=== PATIENT | female | born 1990 | race Caucasian/White ===

== ENCOUNTER 2016-10-20 18:29 | Inpatient (IN) | payer BC, OTHER ==
[~2016-10-20] VITALS: Ht 160 cm; Wt 53.5 kg
[2016-10-20] MEDS ORDERED: MIRALAX 17 GM POWD.PACK PO PRN (19:15)
[2016-10-20] MEDS ORDERED: MAG HYDROX/AL HYDROX/SIMETH 30 ML LIQUID UDC PO PRN (19:15)
[2016-10-20] MEDS ORDERED: ONDANSETRON ODT 4 MG TAB.RAPDIS SL PRN (19:15)
[2016-10-20] MEDS ORDERED: PROMETHAZINE HCL 25 MG/1 ML VIAL IM PRN (19:15)
[2016-10-20] MEDS ORDERED: ACETAMINOPHEN 325 MG TABLET PO PRN (19:15)
[2016-10-20] MEDS ORDERED: CLONIDINE HCL 0.1 MG TABLET PO PRN (19:15)
[2016-10-20] MEDS ORDERED: DICYCLOMINE HCL 20 MG TABLET PO PRN (19:15)
[2016-10-20] MEDS ORDERED: LOPERAMIDE HCL 2 MG CAPSULE PO PRN ×2 (19:15)
[2016-10-20] MEDS ORDERED: KETOROLAC TROMETHAMINE 30 MG INJ IM PRN (19:15)
[2016-10-20] MEDS ORDERED: MAGNESIUM HYDROXIDE 30 ML LIQUID UDC PO PRN (19:15)
[2016-10-20] MEDS ORDERED: BUPRENORPHINE HCL 2 MG TAB.SUBL SL PRN (19:15)
--- NOTE | 2016-10-20 20:30 | NUR ---
ADMISSION NOTE BP: 120/79 HR: 100 RR:20 T:98.3 SpO2:98% Pain: generalized body aches 01/03 Ht: 5'3" Wt: 118 lbs COWS:6, CIWA:6 Pt arrived ambulatory from [facility] Intake to the third floor accompanied by a BHT at 1913. Pt is a 26 year old female who was admitted on 10/20/16 for Heroin dependency. Pt is full code with NKA. She reports a PMHXx of anxiety, depression, chlamydia and herpes II . She denies any recent tremors, falls or seizures. She denies having a PCP. She reports taking home medication of: 1. Clonidine 0.2 mg QID Last dose: 10/19/16. She reports she was at [facility] in July for 45 days. She reports her last sobriety was 60 days, 2 months ago. She verbalizes that she is here for Heroin. She describes her current use as: 1. Heroin IV/inhalation 1 gram daily for 2 months Last dose: " barely 1 gram" this morning (10/20/16) She describes her withdrawal symptoms as: " cold sweats, shakes, restlessness, anxiety and nausea" Upon assessment, pt is alert and oriented x4, anxious, tearful and cooperative. Speech is clear and audible. Heart rate regular. She denies chest pain or SOB. PERRLA, breathing is even and unlabored. Lung sounds clear. Abdomen is soft and non distended, bowel sounds present, last BM (10/20/16). Pt reports that BM is regular. Pt's skin is warm, dry and intact. MD aware of pt's admission. Pt refused all vaccines and lab draw. Risks/benefits explained x3. Pt still refused. She was oriented to room and unit. Pt safe with bed locked in lowest position, side rails up x2 and call light within reach. Will continue to monitor.
[2016-10-20 20:45] LABS: *URINE HCG, QUAL NEGATIVE (NEGATIVE)
[2016-10-20 20:59] LABS: *AMPHETAMINE, URINE NEGATIVE (NEGATIVE); *BARBITURATE, URINE NEGATIVE (NEGATIVE); *CANNABINOID, URINE NEGATIVE (NEGATIVE); *COCCAINE, URINE NEGATIVE (NEGATIVE); *OPIATE, URINE POSITIVE (NEGATIVE); *PHENCYCLIDINE SCREEN,URINE NEGATIVE (NEGATIVE)
[2016-10-20] MEDS ORDERED: LORAZEPAM 1 MG TABLET PO ONE (21:00)
[2016-10-20] MEDS ORDERED: BUPRENORPHINE HCL 2 MG TAB.SUBL SL ONE (21:00)
[2016-10-20] MEDS: GABAPENTIN 300 MG CAPSULE PO SCH (21:13)
[2016-10-20] MEDS ORDERED: CLONIDINE HCL 0.2 MG TABLET PO PRN (22:15)
[2016-10-20] MEDS: METHOCARBAMOL 750 MG TABLET PO PRN (23:08)
--- NOTE | 2016-10-20 23:09 | NUR ---
ONE TIME CLONIDINE/ PRN ROBAXIN Pr reports body aches, PRN Robaxin administered as ordered. Pt reports taking home medication of Clonidine 0.2 mg for anxiety/sleep. MD made aware. Pt received one time order of Clonidine 0.2 mg. Breathing even and unlabored, safety measures in place. Will monitor effectiveness of medication.
[2016-10-21] VITALS: BP 108/75
--- NOTE | 2016-10-21 00:09 | NUR ---
REASSESSMENT Medications effective. Pt reports decreased anxiety and decreased body aches 11/03. Breathing even and unlabored, safety measures in place. Will continue to monitor.
[2016-10-21] MEDS ORDERED: LORAZEPAM 1 MG TABLET PO ONE ×2 (01:00→14:45)
[2016-10-21] MEDS ORDERED: CLON0.2T PO (02:38)
--- NOTE | 2016-10-21 04:00 | NUR ---
VITALS 0400 vitals refused. Breathing is even and unlabored, respirations 16. Pt safe with bed locked in lowest position, side rails up x2 and call light within reach. Will continue to monitor. Addendum: 10/21/16 at 0517 by RODRIGO RHODES RN Amended: Links added.
[2016-10-21 05:20] VITALS: BP 101/66
[2016-10-21] MEDS ORDERED: LORAZEPAM 1 MG TABLET ONE (05:44)
--- NOTE | 2016-10-21 05:44 | NUR ---
ONE TIME ATIVAN/PRN SUBUTEX Pt noted with increased anxiety and agitation. Pt complains of body aches 10/10, nausea with no episode of vomiting, and cold sweats. COWS:13, CIWA:9. One time Ativan and PRN Subutex administered as ordered. Breathing even and unlabored. Safety measures in place. Will continue to monitor effectiveness.
--- NOTE | 2016-10-21 06:44 | NUR ---
ONE TIME ATIVAN/PRN SUBUTEX REASSESSMENT Medications effective. Pt reports body aches decreased to 6/10 and pt feels less anxious/agitated and nausea somewhat improved. COWS:9, CIWA: 6. Breathing is even and unlabored, safety measures in place. Will continue to monitor.
--- NOTE | 2016-10-21 07:03 | NUR ---
END OF SHIFT Pt is a 26 year old female admitted on 10/20/16 for Heroin dependency. Pt is full code with NKA. She reports a PMHx of anxiety, depression and genital herpes. She is scheduled to start 5 day Subutex taper today 10/21/16. She received PRN Robaxin, one time clonidine 0.2 mg, PRN Subutex and one time Ativan. She slept a total of 5 hrs, Intake: 592 mL, Void : x1, BM: 0. COWS: 9, CIWA:6. She remains alert and oriented x4, breathing is even and unlabored, safety measures in place. Endorsed to oncoming nurse.
--- NOTE | 2016-10-21 07:04 | NUR ---
Start of Shift Notes: Received patient in his room. Alert and oriented x 4. Verbally responsive. Able to make needs known. Respirations even and unlabored. No SOB noted. Skin warm and dry to touch. Abdomen soft and non-distended with (+) BS in all 4 quadrants. No complains of N/V/D or constipation noted. No complains of dysuria. Ambulatory ad price with steady gait. Patient is a 26 year old female admitted for opiate dependence who was placed on a 5-day Ativan taper that will be started today. Received PRN Ativan and Subutex as ordered. No adverse reactions noted. Has past medical hx anxiety, depression, and genital herpes. NKA. FULL CODE. Vegetarian diet. Educated patient on the current plan of care for the day and the medication regimen. Encouraged oral fluid intake and encouraged group participation to learn new skills to prevent relapse. Safety precautions in place. Call light kept in reach. Will continue to monitor closely.
[2016-10-21 07:21] LABS: BASOPHILS # (AUTO) 0.1 K/uL (0.0-0.2); BASOPHILS % (AUTO) 0.7 % (0.0-2.0); EOSINOPHILS % (AUTO) 0.2 % (0.0-7.0); HEMATOCRIT 41.2 % (37.0-47.0); HEMOGLOBIN 13.6 g/dL (12.0-16.0); LYMPHOCYTES # (AUTO) 1.7 K/uL (0.8-4.8); LYMPHOCYTES % (AUTO) 19.8 % (20.5-51.5); MEAN CORPUSCULAR HGB CONC 33 g/dL (32.0-37.0); MEAN CORPUSCULAR VOLUME 90.6 fL (81.0-99.0); MONOCYTES # (AUTO) 0.8 K/uL (0.1-1.30); MONOCYTES % (AUTO) 9.4 % (0.0-11.0); NEUTROPHILS % (AUTO) 69.9 % (38.5-71.5); PLATELET COUNT (AUTO) 275 K/uL (150-450); RED BLOOD CELL COUNT(AUTO) 4.54 MIL/uL (4.20-5.40); RED CELL DISTRIBUTION WIDTH 11.1 % (11.5-14.5); WHITE BLOOD COUNT (AUTO) 8.6 K/uL (4.0-11.2)
[2016-10-21 07:36] LABS: ETHANOL < 3 MG/DL (0-0)
[2016-10-21 07:38] LABS: ALANINE AMINOTRANSFERASE 13 U/L (14-59); ALBUMIN 3.9 g/dL (3.4-5.0); ALKALINE PHOSPHATASE 63 U/L (50-136); ASPARTATE AMINOTRANSFERASE 23 U/L (15-37); BILIRUBIN,TOTAL 0.5 mg/dL (0.2-1.0); CALCIUM 8.6 mg/dL (8.5-10.1); CARBON DIOXIDE 29 mmol/L (21-32); CREATININE 0.9 mg/dL (0.6-1.3); GFR 76 mL/min (>60); GLUCOSE 132 mg/dL (74-106); MAGNESIUM 1.8 mg/dL (1.8-2.4); TOTAL PROTEIN, SERUM 7.2 g/dL (6.4-8.2); UREA NITROGEN, BLOOD 5 mg/dL (7-18)
[2016-10-21 07:52] LABS: THYROID STIMULATING HORMONE 1.064 mIU/mL (0.358-3.740)
[2016-10-21 08:00] VITALS: BP 120/88
[2016-10-21 08:03] LABS: CHLORIDE 102 mmol/L (98-107); SODIUM SERUM 140 mmol/L (136-145)
[2016-10-21] MEDS: BUPRENORPHINE HCL 2 MG TAB.SUBL SL SCH ×4 (08:11→20:52)
[2016-10-21] MEDS: GABAPENTIN 300 MG CAPSULE PO SCH ×3 (08:11→20:49)
[2016-10-21] MEDS: METHOCARBAMOL 750 MG TABLET PO PRN (08:12)
[2016-10-21] MEDS: HYDROXYZINE PAMOATE 25 MG CAPSULE PO PRN (08:12)
--- NOTE | 2016-10-21 08:12 | NUR ---
PRN Clonidine/PRN Robaxin/PRN Vistaril PO given: Patient reports complains of chils, hot flashes, 5/10 muscle aches and pains as well as anxiety related to withdrawal symptoms. Redirected and reassurance was provided with no help. Medicated patient with Vistaril, Clonidine and Robaxin as ordered. Will monitor for effectiveness.
[2016-10-21 08:17] LABS: POTASSIUM 3.3 mmol/L (3.5-5.1)
--- NOTE | 2016-10-21 08:20 | NUR ---
Additional substance use history: Patient revealed that she was also taking Xanax - since 17 years old. She currently uses 12 mg a day either PO or snorted for 2 years. Last use was on 10/20/2016 4 mg. Notified MD Small.
[2016-10-21 08:26] LABS: HIV-1 p24 ANTIGEN NON REACTIVE (NONREACTIVE); HIV-1/2 ANTIBODY NON REACTIVE (NONREACTIVE)
[2016-10-21] MEDS: MULTIVITAMINS,THERAPEUTIC TABLET PO SCH (08:29)
[2016-10-21] MEDS ORDERED: TUBERCULIN,PURIF.PROT.DERIV. 5 TU/0.1 ML TEST ID ONE (09:00)
--- NOTE | 2016-10-21 09:00 | NUR ---
MD Communication: Per MD Small, continue to monitor CIWA scores at this time and notify if CIWA >12. Patient's UDS negative for BZO use.
--- NOTE | 2016-10-21 09:12 | NUR ---
Re-assessment: Per patient, PRN Robaxin, Clonidine and Vistaril were effective in reducing patient's anxiety, chills and muscle aches and pains.
[2016-10-21 12:00] VITALS: BP 106/62
--- NOTE | 2016-10-21 12:59 | NUR ---
Labs: Potassium level 3.3L. Dr. Small aware. Replaced with KCL 20 MEq PO. Patient education provided.
[2016-10-21] MEDS ORDERED: POTASSIUM CHLORIDE 20 MEQ TAB.PRT.SR PO ONE (13:00)
--- NOTE | 2016-10-21 13:30 | NUR ---
Behavior: Patient noted with episodes of inappropriate behavior. Attempts to go inside another patient's room despite explanation of rules and regulation. Patient appears to be unapologetic about her behavior. Also noted to become upset over her lunch tray, seen to yell while at the nurse's station and throwing her meal try at the nurse's desk. Immediately redirected the patient in a calm and professional manner. Appears to med seek and ask for more and more meds despite multiple explanations from staff to redirect her and reassure her. MD Small aware of patient's behavior. For psych eval by Dr. Weathers.
--- NOTE | 2016-10-21 14:54 | NUR ---
Ativan 2 mg PO x 1: New orders received from Dr. Small to receive one time dose of Ativan for CIWA 10 due to anxiety and agitation.
--- NOTE | 2016-10-21 15:54 | NUR ---
Re-assessment: Per patient, Ativan helped in reducing anxiety.
[2016-10-21 16:00] VITALS: BP 109/73
[2016-10-21] MEDS: CLONIDINE HCL 0.1 MG TABLET PO SCH ×2 (16:58→20:50)
--- NOTE | 2016-10-21 18:35 | NUR ---
End of Shift Notes: Patient is a 26 year old female admitted for opiate dependence who was placed on a 5-day Subutex taper that was started today. No adverse reactions noted. Patient is tolerating taper well. Has past medical hx of anxiety, depression, and herpes II. NKA. FULL CODE. Vegetarian diet. Prior to admission, patient was using 1 gram Heroin IV or smoked. Patient's VS monitored q 4 hours. No significant abnormalities noted. Patient's withdrawal symptoms were closely monitored. Initial COWS 13, CIWA 8. Patient presented with anxiety, agitation, chills, hot flashes, muscle aches and pains, and sweats. Medicated patient with Clonidine, Robaxin and Vistaril as ordered at 0812 with help after 1 hour and one time Ativan 1 mg PO at 1454. Last COWS 5, CIWA 7. Per patient, Subutex has been helping her with her withdrawal symptoms. Patient tends to ask for more meds despite redirection and explanations of medication regimen . Safety precautions in place. Call light in reach. Unable to participate in group and therapy sessions. All needs met and attended. Will continue to monitor closely.
[2016-10-21 20:00] VITALS: BP 110/65
--- NOTE | 2016-10-21 20:00 | NUR ---
Start of Shift Pt is a 26 year old female admitted on 10/20/2016 for Heroin, placed on 5 day Subutex taper. Pt reported using Heroin IV/smoke 1 gram for the past 2 months. Pt is allergic to quetiapine, fall precautions, vegetarian diet and full code. PMH: anxiety, depression and herpes II. Upon assessment, pt reports anxiety, is emotional, crying, reports body aches/joint aches. respirations even and unlabored, denies SOB/chest pain, denies n/v/d, bowel sounds active x4, abdomen soft. BP 110/65, pulse 73, respirations 16 , SpO2 96%, temp 98. Will administered scheduled medications. Safety measures in place, call light within reach, side rails up x2, bed locked and in low position. Will continue to monitor.
[2016-10-21] MEDS ORDERED: OLANZAPINE 5 MG TABLET PO SCH (20:30)
[2016-10-21] MEDS ORDERED: OLANZAPINE 5 MG TABLET PO ONE (20:30)
--- NOTE | 2016-10-21 20:48 | NUR ---
ZYPREXA 5MG X1 Pt is emotional, is crying, face flushed/clammy skin. Pt stated, "I AM VERY ANXIOUS!!" Pt is pacing in room, speech rapid. Zyprexa 5mg x1 administered. Safety measures in place, Will continue to monitor.
--- NOTE | 2016-10-21 21:48 | NUR ---
Zyprexa Reassessment Pt is in room, in bed watching TV, no reports of distress, respirations even and unlabored. Safety measures in place, Will continue to monitor.
[2016-10-21] MEDS: diphenhydrAMINE 50 MG CAPSULE PO PRN (22:40)
--- NOTE | 2016-10-21 22:40 | NUR ---
PRN Administration Pt requested aid to help her sleep. Benadryl 50mg PRN administered. Safety measures in place, call light within reach, side rails up x2, bed locked and in low position. Will continue to monitor.
--- NOTE | 2016-10-21 23:45 | NUR ---
PRN Reassessment Pt is sleeping, medication effective, no s/s of distress noted, respirations even and unlabored. Safety measures in place, call light within reach, side rails up x2, bed locked and in low position. Will continue to monitor.
[2016-10-22] VITALS: BP 94/76
--- NOTE | 2016-10-22 | NUR ---
Vital Signs BP 94/76, pulse 76, respirations 16, SpO2 98%, temp 98.1, no pain 0/10 CIWA/COWS deferred d/t pt sleeping, to asses while awake as ordered. Respirations even and unlabored, no s/s of distress noted. Safety measures in place, call light within reach, side rails up x2, bed locked and in low position. Will continue to monitor.
--- NOTE | 2016-10-22 04:00 | NUR ---
Pt refused to be woken up for 0400 VS CIWA/COWS deferred d/t pt sleeping, to asses while awake as ordered. Respirations even and unlabored, no s/s of distress noted. Safety measures in place, call light within reach, side rails up x2, bed locked and in low position. Will continue to monitor.
--- NOTE | 2016-10-22 07:00 | NUR ---
End of Shift Pt is a 26 year old female admitted on 10/20/2016 for Heroin, placed on 5 day Subutex taper. Pt reported using Heroin IV/smoke 1 gram for the past 2 months. Pt is allergic to quetiapine, fall precautions, vegetarian diet and full code. PMH: anxiety, depression and herpes II. Pt presented with anxiety, body joint/aches, - scheduled taper medication administered. During shift, pt was in emotional distress, pt was crying with flushed face, rapid speech, stating, "I AM VERY ANXIOUS!!" Pt Zyprexa 5mg x1 administered. Benadryl 50mg PRN administered for sleep, effective. CIWA 6, COWA 5, VS stable, pt slept for 5 hours, intake of 1500 ml PO and voids x2. Safety measures in place, call light within reach, side rails up x2, bed locked and in low position. Endorsed to day shift nurse.
--- NOTE | 2016-10-22 07:05 | NUR ---
Start of Shift Endorsement received from nightshift nurse. Pt is a 26 y/o female admitted for Heroin dependence. Pt has been placed on a 5 day Subutex taper. Pt received PRN Benadryl and reports sleeping 5 hours. Pt is tolerating the taper well and mildly withdrawing at this time AEB COWS 5, CIWA 6. VS WNL, Full CODE. PT is alert and oriented x4. Pt is in STABLE condition at this time. Remains compliant with medication and diet regimen. All needs have been met, All safety measures in place per hospital policy. Bed in lowest position, side rails up x2, call-light within reach. Will continue to monitor
[2016-10-22 08:00] VITALS: BP 89/58
[2016-10-22] MEDS: MULTIVITAMINS,THERAPEUTIC TABLET PO SCH (10:46)
[2016-10-22] MEDS: GABAPENTIN 300 MG CAPSULE PO SCH ×3 (10:46→20:04)
[2016-10-22] MEDS: CLONIDINE HCL 0.1 MG TABLET PO SCH ×4 (10:46→20:05)
[2016-10-22] MEDS: BUPRENORPHINE HCL 2 MG TAB.SUBL SL SCH ×3 (10:47→20:06)
[2016-10-22] MEDS ORDERED: SULFAMETH/TRIMETH 800/160 MG TABLET PO SCH (11:30)
[2016-10-22 12:00] VITALS: BP 124/73
[2016-10-22] MEDS ORDERED: OLANZAPINE 2.5 MG TABLET PO PRN (14:30)
[2016-10-22 15:09] LABS: HCV AB <0.1 s/co ratio (0.0-0.9); HEPATITIS B CORE AB, IgM Negative (Negative); HEPATITIS B SURFACE AG Negative (Negative)
[2016-10-22 16:00] VITALS: BP 119/78
[2016-10-22] MEDS: IBUPROFEN 600 MG TABLET PO PRN (18:27)
[2016-10-22] MEDS: METHOCARBAMOL 750 MG TABLET PO PRN (18:27)
[2016-10-22] MEDS: HYDROXYZINE PAMOATE 25 MG CAPSULE PO PRN (18:27)
--- NOTE | 2016-10-22 18:59 | NUR ---
End of Shift Endorsement received from nightshift nurse. Pt is a 26 y/o female admitted for Heroin dependence. Pt has been placed on a 5 day Subutex taper. Pt received PRN Motrin, Vistaril and Robaxin for withdrawal symptoms. Pt is tolerating the taper well and mildly withdrawing at this time AEB COWS 3, CIWA 5. Intake: 1755ml, Void x2, BM x0. VS WNL, Full CODE. PT is alert and oriented x4. Pt is in STABLE condition at this time. Remains compliant with medication and diet regimen. All needs have been met, All safety measures in place per hospital policy. Bed in lowest position, side rails up x2, call-light within reach. Will continue to monitor
[2016-10-22 20:00] VITALS: BP 109/65
--- NOTE | 2016-10-22 20:00 | NUR ---
Start of Shift Pt is a 26 year old female admitted on 10/20/2016 for Heroin, placed on 5 day Subutex taper. Pt reported using Heroin IV/smoke 1 gram for the past 2 months. Pt is allergic to quetiapine, fall precautions, vegetarian diet and full code. PMH: anxiety, depression and herpes II. Upon assessment, pt reports anxiety, reports body aches, skin noted with moderate sweat. respirations even and unlabored, denies SOB/chest pain, denies n/v/d, bowel sounds active x4, abdomen soft. BP 109/65, pulse 71, respirations 16 , SpO2 96%, temp 97.9. Will administered scheduled medications. Safety measures in place, call light within reach, side rails up x2, bed locked and in low position. Will continue to monitor.
[2016-10-22] MEDS: diphenhydrAMINE 50 MG CAPSULE PO PRN (22:06)
--- NOTE | 2016-10-22 23:06 | NUR ---
PRN Reassessment Pt is sleeping, medication effective. No s/s of distress noted, respirations even and unlabored. Safety measures in place, call light within reach, side rails up x2, bed locked and in low position. Will continue to monitor.
--- NOTE | 2016-10-23 | NUR ---
Pt refused to be woken up for 0000 VS CIWA/COWS deferred d/t pt sleeping, to asses while awake as ordered. Respirations even and unlabored, no s/s of distress noted. Safety measures in place, call light within reach, side rails up x2, bed locked and in low position. Will continue to monitor.
--- NOTE | 2016-10-23 07:00 | NUR ---
End of Shift Pt is a 26 year old female admitted on 10/20/2016 for Heroin, placed on 5 day Subutex taper. Pt reported using Heroin IV/smoke 1 gram for the past 2 months. Pt is allergic to quetiapine, fall precautions, vegetarian diet and full code. PMH: anxiety, depression and herpes II. During shift, pt presented with anxiety and body aches - scheduled taper medications administered, COWS 3 and CIWA 4, Benadryl 50mg PRN administered. VS stable, pt slept for 7 hours, intake of 1180 ml Po and voids x3. Safety measures in place, call light within reach, side rails up x2, bed locked and in low position. Endorsed to day shift nurse.
--- NOTE | 2016-10-23 07:05 | NUR ---
Start of Shift Endorsement received from nightshift nurse. Pt is a 26 y/o female admitted for Heroin dependence. Pt has been placed on a 5 day Subutex taper. Pt received PRN Benadryl and reports sleeping 7 hours. Pt is tolerating the taper well and mildly withdrawing at this time AEB COWS 3, CIWA 4. VS WNL, Full CODE. Pt reports readiness for discharge. Educated pt on deep breathing techniques to relieve mild anxiety. PT is alert and oriented x4. Pt is in STABLE condition at this time. Remains compliant with medication and diet regimen. All needs have been met, All safety measures in place per hospital policy. Bed in lowest position, side rails up x2, call-light within reach. Will continue to monitor
[2016-10-23 08:00] VITALS: BP 104/68
[2016-10-23] MEDS: MULTIVITAMINS,THERAPEUTIC TABLET PO SCH (08:13)
[2016-10-23] MEDS: CLONIDINE HCL 0.1 MG TABLET PO SCH ×4 (08:13→20:21)
[2016-10-23] MEDS: GABAPENTIN 300 MG CAPSULE PO SCH ×3 (08:13→20:20)
[2016-10-23] MEDS ORDERED: 4 DAY TAPER BUPRENORPHINE -SERENITY PROTOCOL SL PRN (09:00)
[2016-10-23] MEDS ORDERED: BUPRENORPHINE HCL 2 MG TAB.SUBL SL SCH (09:00)
[2016-10-23 12:00] VITALS: BP 119/74
[2016-10-23] MEDS: BUPRENORPHINE HCL 2 MG TAB.SUBL SL SCH ×2 (15:17→20:21)
[2016-10-23 16:00] VITALS: BP 130/74
--- NOTE | 2016-10-23 19:08 | NUR ---
End of Shift Endorsement received from nightshift nurse. Pt is a 26 y/o female admitted for Heroin dependence. Pt has been placed on a 5 day Subutex taper. Pt did not receive any prn medications. Pt refused all clonidine, reporting she rather take her Subutex and does not need the clonidine. Pt is tolerating the taper well and mildly withdrawing at this time AEB COWS 3, CIWA 3. Intake: 1291ml, Void x3, BM x0. Pt participated in groups and activities. VS WNL, Full CODE. PT is alert and oriented x4. Pt is in STABLE condition at this time. Remains compliant with medication and diet regimen. All needs have been met, All safety measures in place per hospital policy. Bed in lowest position, side rails up x2, call-light within reach. Will continue to monitor
--- NOTE | 2016-10-23 19:30 | NUR ---
START OF SHIFT NOTE: Patient is a 26 y/o female admitted on 10/20/16 for Opiate dependence. Patient reported using Heroin 1 gram daily for 2 months. Patient with past medical history of Anxiety, Depression, & Herpes II. Fall precaution noted. Patient is on a Vegetarian diet. No known food and drug allergies. Full Code status. Patient is on a 5-day Subutex taper and tolerating well. Last COWS 5 CIWA 3. Patient did not recieve any PRN medication during day shift. Patient is alert & oriented x4. No shortness of breath noted. Respiration even & unlabored. Abdomen soft & non-distended. Bowel sounds active in all four quadrants. Slight nausea/vomiting noted. Patient complains of 8/10 body aches. Bilateral hand tremors noted. Patient complains of sweating & chills & 6/10 headache. No hallucinations. Patient denies SI/HI. Safety precautiopns are in place. Bed locked in lowest position. Both side rails up. Call light within pt's reach. Will continue to monitor patient.
[2016-10-23 20:00] VITALS: BP 115/73
[2016-10-23] MEDS: IBUPROFEN 600 MG TABLET PO PRN (20:20)
--- NOTE | 2016-10-23 20:20 | NUR ---
PRN Motrin Patient complains of 8/10 headache. PRN Motrin given as ordered. Will continue to monitor.
--- NOTE | 2016-10-23 20:30 | NUR ---
RN NOTE: Pt was seen by Dr. Trevino with new orders noted.
--- NOTE | 2016-10-23 21:20 | NUR ---
PRN Reassessment Patient verbalized relief from headache. headache is 4/10 in a pain scale at this time. Safety precautions are in place. Will continue to monitor patient.
[2016-10-23] MEDS: busPIRone 10 MG TABLET PO SCH (23:08)
[2016-10-23] MEDS ORDERED: busPIRone 10 MG TABLET ONE (23:13)
[2016-10-23] MEDS: diphenhydrAMINE 50 MG CAPSULE PO PRN (23:46)
--- NOTE | 2016-10-23 23:46 | NUR ---
PRN Benadryl Patient complains of insomnia and asking for medication to help her sleep. PRN benadryl given as ordered. Will continue to monitor patient.
[2016-10-24] VITALS: BP 102/62
--- NOTE | 2016-10-24 04:00 | NUR ---
Vitals/Cows deferred Patient refused vitals at this time. No shortness of breath noted. Respiration even & unlabored. Safety precautions are in place. Will continue to monitor.
--- NOTE | 2016-10-24 07:05 | NUR ---
Start of Shift Endorsement received from nightshift nurse. Pt is a 26 y/o female admitted for Heroin dependence. Pt has been placed on a 5 day Subutex taper. Pt received PRN Benadryl and Motrin. PT reports sleeping 6 hours. Pt is moderately withdrawing at this time AEB COWS 7, CIWA 6. VS WNL, Full CODE. PT is alert and oriented x4. Pt is in STABLE condition at this time. Remains compliant with medication and diet regimen. All needs have been met, All safety measures in place per hospital policy. Bed in lowest position, side rails up x2, call-light within reach. Will continue to monitor
--- NOTE | 2016-10-24 07:11 | NUR ---
END OF SHIFT NOTE: Patient is a 26 y/o female admitted on 10/20/16 for Opiate dependence. Patient reported using Heroin 1 gram daily for 2 months. Patient with past medical history of Anxiety, Depression, & Herpes II. Fall precaution noted. Patient is on a Vegetarian diet. No known food and drug allergies. Full Code status. Patient is on a 5-day Subutex taper and tolerating well. Last COWS 7 CIWA 6 noted. Pt reported that medication is effective in controlling her withdrawal symptoms. Pt was given PRN Motrin & Benadryl and were effective. Pt has new order for Buspar 10mg PO TID for anxiety. Pt remained stable and vitals remains WNL. Pt slept for a total of 6 hours. Pt consumed 760 ml of fluids. Voided 2x with no bowel movement. Pt still asleep at this time. No shortness of breath noted. Respiration even & unlabored.All needs attended & met. Safety precautions are in place. Will endorse pt to day shift nurse.
[2016-10-24 08:00] VITALS: BP 115/74
[2016-10-24] MEDS: GABAPENTIN 300 MG CAPSULE PO SCH ×3 (09:11→21:00)
[2016-10-24] MEDS: MULTIVITAMINS,THERAPEUTIC TABLET PO SCH (09:11)
[2016-10-24] MEDS: CLONIDINE HCL 0.1 MG TABLET PO SCH ×4 (09:15→21:01)
[2016-10-24] MEDS: BUPRENORPHINE HCL 2 MG TAB.SUBL SL SCH ×3 (09:15→21:01)
[2016-10-24] MEDS: busPIRone 10 MG TABLET PO SCH ×3 (09:15→17:00)
[2016-10-24 13:14] VITALS: BP 102/59
[2016-10-24 16:00] VITALS: BP 119/78
--- NOTE | 2016-10-24 18:53 | NUR ---
End of Shift Endorsement received from nightshift nurse. Pt is a 26 y/o female admitted for Heroin dependence. Pt has been placed on a 5 day Subutex taper. Pt did not receive any prn medications. Pt has refused scheduled clonidine and buspar, reporting that they dont help her. Pt is tolerating the taper well and mildly withdrawing at this time AEB COWS 2, CIWA 1. Pt reports readiness for sobriety. Educated pt on deep breathing techniques. Intake: 1250ml, Void x3, BM x1. Pt participated in groups and activities. VS WNL, Full CODE. PT is alert and oriented x4. Pt is in STABLE condition at this time. Remains compliant with medication and diet regimen. All needs have been met, All safety measures in place per hospital policy. Bed in lowest position, side rails up x2, call-light within reach. Will continue to monitor
[2016-10-24] MEDS ORDERED: HYDROXYZINE PAMOATE 25 MG CAPSULE PO PRN (19:15)
--- NOTE | 2016-10-24 19:15 | NUR ---
START OF SHIFT NOTE: Patient is a 26 y/o female admitted on 10/20/16 for Opiate dependence. Patient reported using Heroin 1 gram daily for 2 months. Patient with past medical history of Anxiety, Depression, & Herpes II. Fall precaution noted. Patient is on a Vegetarian diet. No known food and drug allergies. Full Code status. Patient is on a 5-day Subutex taper and tolerating well. Last COWS 2 CIWA 1. Patient did not recieve any PRN medication during day shift. Patient is alert & oriented x4. No shortness of breath noted. Respiration even & unlabored. Abdomen soft & non-distended. Bowel sounds active in all four quadrants. No nausea/vomting noted. Patient complains of 8/10 body aches, stomach cramps & chills. Bilateral hand tremors felt. No hallucinations. Patient denies SI/HI. Safety precautions are in place. Bed locked in lowest position. Both side rails up. Call light within pt's reach. Will continue to monitor patient.
[2016-10-24 20:00] VITALS: BP 102/75
[2016-10-24] MEDS: METHOCARBAMOL 750 MG TABLET PO PRN (21:00)
--- NOTE | 2016-10-24 21:00 | NUR ---
PRN Vistaril & Robaxin Patient complains of anxiety & 8/10 body aches. Pt appears to be restless with facial grimacing noted. PRN Vistaril & Robaxin given as ordered. Will continue to monitor patient.
--- NOTE | 2016-10-24 22:00 | NUR ---
PRN Reassessment Patient verbalized relief from anxiety & body aches. Patient lying in bed and appears comfortable. No s/s of distress noted. Will continue to monitor patient.
--- NOTE | 2016-10-25 | NUR ---
Vitals/Cows deferred Patient refused vitals at this time. No shortness of breath noted. Respiration even & unlabored. Safety precautions are in place. Will continue to monitor.
--- NOTE | 2016-10-25 04:00 | NUR ---
Vitals/Cows deferred Patient refused vitals at this time. No shortness of breath noted. Respiration even & unlabored. Safety precautions are in place. Will continue to monitor.
--- NOTE | 2016-10-25 07:17 | NUR ---
END OF SHIFT NOTE: Patient is a 26 y/o female admitted on 10/20/16 for Opiate dependence. Patient reported using Heroin 1 gram daily for 2 months. Patient with past medical history of Anxiety, Depression, & Herpes II. Fall precaution noted. Patient is on a Vegetarian diet. No known food and drug allergies. Full Code status. Patient is on a 5-day Subutex taper and tolerating well. Last COWS 7 CIWA 3 noted. Pt reported that medication is effective in controlling her withdrawal symptoms. Pt was given PRN Robaxin & Vistaril and were effective. Pt remained stable and vitals remains WNL. Pt slept for a total of 8 hours. Pt consumed 737 ml of fluids. Voided 1x with no bowel movement. Pt still asleep at this time. No shortness of breath noted. Respiration even & unlabored. All needs attended & met. Safety precautions are in place. Will endorse pt to day shift nurse.
--- NOTE | 2016-10-25 07:18 | NUR ---
Start of Shift Notes: Received patient in her room. Alert and verbally responsive. Oriented x 4. Respirations even and unlabored. No SOB noted. Skin warm and dry to to touch. Abdomen soft and non-distended. BS (+) in all 4 quadrants. No complains of N/V/D or constipation noted. Denies any complains of abdominal discomfort. Voids independently. Bladder non-distended. Voids independently. Ambulatory ad price with steady gait. Patient is a 26 year old female admitted for opiate dependence who was placed on a 5-day Subutex as ordered. No adverse reactions noted. Allergic to seroquel. FULL CODE. Regular diet. On fall and seizure precautions. Educated patient on her current plan of care for the day and her medication regimen. Encouraged oral fluid intake and encouraged group participation to learn new skills to prevent relapse. Will continue to monitor closely.
[2016-10-25 08:00] VITALS: BP 91/62
[2016-10-25] MEDS: MULTIVITAMINS,THERAPEUTIC TABLET PO SCH (08:36)
[2016-10-25] MEDS: busPIRone 10 MG TABLET PO SCH ×3 (08:36→16:33)
[2016-10-25] MEDS: GABAPENTIN 300 MG CAPSULE PO SCH ×3 (08:36→21:20)
[2016-10-25] MEDS: CLONIDINE HCL 0.1 MG TABLET PO SCH ×4 (08:37→21:20)
--- NOTE | 2016-10-25 08:38 | NUR ---
Clonidine 0.1mg PO at 0900 held: Clonidine 0.1mg PO at 0900 not administered due to BP 91/62. Patient denies any complains of headache and dizziness. COWS 4.
[2016-10-25] MEDS ORDERED: BUPRENORPHINE HCL 2 MG TAB.SUBL SL SCH (09:00)
[2016-10-25] MEDS ORDERED: ONDANSETRON 4 MG/2 ML VIAL IM PRN (11:30)
[2016-10-25 12:00] VITALS: BP 100/61
[2016-10-25 16:00] VITALS: BP 101/73
--- NOTE | 2016-10-25 16:34 | NUR ---
Clonidine 0.1mg and Buspar at 1700 not administered: Patient refused Clonidine and Buspar dose at 1700. Education provided on the risk and benefits but patient still refused. Offered 3x. Per patient, she does not want to take any meds at this time. Will continue to monitor closely.
--- NOTE | 2016-10-25 18:38 | NUR ---
End of Shift Notes: Patient is a 26 year old female admitted opiate dependence who was placed on a 5-day Subutex taper as ordered. No adverse reactions noted. Has past medical hx of anxiety, depression and herpes II. FULL CODE. NKA. Vegetarian diet. Prior to admission, patient was using 1 gram of Heroin daily x 2 months. VS monitored closely q 4 hours. Noted with decreased blood pressure of 91/62 in AM. Clonidine 0.1mg PO held at 0900. Initial COWS 4 - patient presented with anxiety, agitation, fine tremors and nervousness. Last COWS 07/27. Per patient, Subutex has been helping her with her withdrawal symptoms. Refused Clonidine and Buspar at 1700 despite education of risk and benefits. Patient needs encouragement to participate in group and therapy sessions. With discharge plans tomorrow. UDS pending. Compliant with care and treatment. All needs met and attended. Will continue to monitor closely.
--- NOTE | 2016-10-25 19:30 | NUR ---
START OF SHIFT NOTE: Patient is a 26 y/o female admitted on 10/20/16 for Opiate dependence. Patient reported using Heroin 1 gram daily for 2 months. Patient with past medical history of Anxiety, Depression, & Herpes II. Fall precaution noted. Patient is on a Vegetarian diet. No known food and drug allergies. Full Code status. Patient is on a 5-day Subutex taper and tolerating well. Last COWS 1 CIWA 1. Patient did not recieve any PRN medication during day shift. Patient is alert & oriented x4. No shortness of breath noted. Respiration even & unlabored. Abdomen soft & non-distended. Bowel sounds active in all four quadrants. No nausea/vomting noted. Patient complains of 6/10 body aches, & chills. No bilateral hand tremors noted. No hallucinations. Patient denies SI/HI. Safety precautions are in place. Bed locked in lowest position. Both side rails up. Call light within pt's reach. Will continue to monitor patient. Addendum: 10/25/16 at 2150 by ASH CONRAD RN Patient completed her Subutex taper and she is scheduled to be discharge tomorrow. Urine for drug screen to be collected.
[2016-10-25 20:00] VITALS: BP 110/80
[2016-10-25] MEDS: IBUPROFEN 600 MG TABLET PO PRN (21:20)
--- NOTE | 2016-10-25 21:20 | NUR ---
PRN Motrin Patient complains of 6/10 body aches. Non-pharmacological interventions provided but not effective. PRn Motrin given as ordered. Will continue to monitor.
[2016-10-25 21:42] LABS: *AMPHETAMINE, URINE NEGATIVE (NEGATIVE); *BARBITURATE, URINE NEGATIVE (NEGATIVE); *CANNABINOID, URINE NEGATIVE (NEGATIVE); *COCCAINE, URINE NEGATIVE (NEGATIVE); *OPIATE, URINE NEGATIVE (NEGATIVE); *PHENCYCLIDINE SCREEN,URINE NEGATIVE (NEGATIVE)
--- NOTE | 2016-10-25 22:20 | NUR ---
PRN Reassessment Patient verbalized relief pain. 2/10 pain noted at this time. Will continue to monitor patient.
--- NOTE | 2016-10-26 04:00 | NUR ---
Vitals/Cows/Ciwa deferred Patient refused vitals at this time. Patient asleep in bed and appears comfortable. No s/s of distress noted. respiration even & unlabored. Safety precautions are in place. Will continue to monitor patient.
--- NOTE | 2016-10-26 07:16 | NUR ---
END OF SHIFT NOTE: Patient is a 26 y/o female admitted on 10/20/16 for Opiate dependence. Patient reported using Heroin 1 gram daily for 2 months. Patient with past medical history of Anxiety, Depression, & Herpes II. Fall precaution noted. Patient is on a Vegetarian diet. No known food and drug allergies. Full Code status. Patient completed her taper and she is scheduled to be discharge today. Urine drug screen collected and resulted. Last COWS 3 CIWA 1 noted. Pt was given PRN Motrin for body aches and was effective. Pt remained stable and vitals remains WNL. Pt slept for a total of 6 hours. Pt consumed 800 ml of fluids. Voided 2x with no bowel movement. Pt still asleep at this time. No shortness of breath noted. Respiration even & unlabored. All needs attended & met. Safety precautions are in place. Will endorse pt to day shift nurse.
--- NOTE | 2016-10-26 07:45 | NUR ---
START OF SHIFT NOTE: Received report from night coordinator nurse. Patient is a 26 y/o female admitted on 10/20/16 for Opiate dependence. To be discharged today. Pt is alert and oriented X4. Color good, skin warm and dry. Respirations even and unlabored. Safety precautions observed. Call light within reach.
[2016-10-26 08:56] VITALS: BP 96/60
[2016-10-26] MEDS: GABAPENTIN 300 MG CAPSULE PO SCH ×2 (09:00→14:20)
[2016-10-26] MEDS: MULTIVITAMINS,THERAPEUTIC TABLET PO SCH (09:00)
[2016-10-26] MEDS: CLONIDINE HCL 0.1 MG TABLET PO SCH ×3 (09:00→17:00)
[2016-10-26] MEDS: busPIRone 10 MG TABLET PO SCH ×3 (09:00→17:00)
--- NOTE | 2016-10-26 09:36 | NUR ---
Pt sleeping and refused all AM medications.
[2016-10-26] MEDS ORDERED: Ibuprofen PO (09:38)
[2016-10-26] MEDS ORDERED: METH-33 PO (09:38)
[2016-10-26] MEDS ORDERED: Buspirone Hcl PO (09:38)
[2016-10-26] MEDS ORDERED: HYDR-3895 PO (09:38)
[2016-10-26] MEDS ORDERED: CLON0.1T14 PO (09:38)
[2016-10-26] MEDS ORDERED: DICY20TA28 PO (09:38)
[2016-10-26] MEDS ORDERED: Gabapentin PO (09:38)
[2016-10-26 12:00] VITALS: BP 114/70
--- NOTE | 2016-10-26 13:30 | NUR ---
VSS Pt refused afternoon meds.
[2016-10-26 16:00] VITALS: BP 117/74
--- NOTE | 2016-10-26 16:37 | NUR ---
VSS Discharge papers signed. No home medications.
== END 2016-10-26 17:53 | disposition home or self-care (01) | DRG 895 ==
LOC: SRC 18:29
PROVIDERS: ADMIT Internal Medicine; ATTEND Internal Medicine
PROC: HZ2ZZZZ Detoxification Services for Substance Abuse Treatment (ICD-10-PCS; principal; 2016-10-20)
PROC: HZ41ZZZ Group Counseling for Substance Abuse Treatment, Behavioral (ICD-10-PCS; 2016-10-23)
DX: F11.23 Opioid dependence with withdrawal (principal); F10.10 Alcohol abuse, uncomplicated; Y90.9 Presence of alcohol in blood, level not specified; F13.10 Sedative, hypnotic or anxiolytic abuse, uncomplicated; E87.6 Hypokalemia; Z59.1 Inadequate housing; G47.00 Insomnia, unspecified; F41.0 Panic disorder [episodic paroxysmal anxiety]; F17.210 Nicotine dependence, cigarettes, uncomplicated; Z81.8 Family history of other mental and behavioral disorders; Z91.14 Patient's other noncompliance with medication regimen; F14.10 Cocaine abuse, uncomplicated
CPT/HCPCS: 36415; 70030-TC; 80307; 80361; 83735; 84443; 84703; 85025; 86580; 86592; 86705; 86803; 87340; 87806; A4663; G6040-TC; Q0163